=== PATIENT | male | born 1975 | race Caucasian/White ===

== ENCOUNTER 2016-12-09 13:30 | Emergency (ER) | payer OTHER ==
[~2016-12-09] VITALS: Ht 180.3 cm; Wt 79.4 kg
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
[~2016-12-09 13:30] MED LIST: NO MEDICATIONS
== END 2016-12-09 15:30 | disposition home or self-care (01) ==
LOC: CFTX 13:30 → CED 13:30 → CFTX 13:59
DX: S06.0X9A Concussion with loss of consciousness of unspecified duration, initial encounter (principal); S00.11XA Contusion of right eyelid and periocular area, initial encounter; S00.33XA Contusion of nose, initial encounter; M50.822 Other cervical disc disorders at C5-C6 level; W22.8XXA Striking against or struck by other objects, initial encounter; Y92.410 Unspecified street and highway as the place of occurrence of the external cause
CPT/HCPCS: 70450; 70486; 72125; 99284